=== PATIENT | female | born 1980 | race Caucasian/White ===

== ENCOUNTER 2022-12-14 09:31 | Outpatient (REF) | payer BC, SELFPAY ==
[2022-12-14 23:29] LABS: C Reactive Protein <0.2 mg/dL (<=1.0)
== END 2022-12-14 09:32 ==
LOC: LAB 09:31
PROVIDERS: PCP Nurse Practitioner Family; Visit Provider Internal Medicine Infectious Disease
DX: Z79.2 Long term (current) use of antibiotics (principal)
CPT/HCPCS: 36415; 86140

== ENCOUNTER 2022-12-21 09:45 | Outpatient (REF) | payer BC, SELFPAY ==
[2022-12-21 10:39] LABS: C Reactive Protein 0.5 mg/dL (<=1.0)
== END 2022-12-21 09:46 ==
LOC: LAB 09:45
PROVIDERS: PCP Nurse Practitioner Family; Visit Provider Internal Medicine Infectious Disease
DX: Z79.2 Long term (current) use of antibiotics (principal)
CPT/HCPCS: 36415; 86140

== ENCOUNTER 2022-12-28 09:06 | Outpatient (REF) | payer BC, SELFPAY ==
[2022-12-28 11:23] LABS: C Reactive Protein 0.5 mg/dL (<=1.0)
== END 2022-12-28 09:07 ==
LOC: LAB 09:06
PROVIDERS: PCP Nurse Practitioner Family; Visit Provider Internal Medicine Infectious Disease
DX: G06.1 Intraspinal abscess and granuloma (principal)
CPT/HCPCS: 36415; 86140

== ENCOUNTER 2023-02-03 12:44 | Outpatient (RCR) | payer BC, SELFPAY | END 2023-02-04 16:00 | disposition home or self-care (01) | LOC: PT 12:44 | PROVIDERS: PCP Nurse Practitioner Family; Visit Provider Neurological Surgery | DX: M46.46 Discitis, unspecified, lumbar region (principal); M51.26 Other intervertebral disc displacement, lumbar region; M46.1 Sacroiliitis, not elsewhere classified; G89.29 Other chronic pain | CPT/HCPCS: 97110; 97161 ==

== ENCOUNTER 2025-07-05 12:08 | Outpatient (OUT) | payer BC, SELFPAY ==
--- OUTSIDE RECORDS SUMMARY | 2025-07-05 12:13 | XMS_ITS | Patient Health Record ---
Author Organization [facility] in [place] Address [address] [place] [address] Care Team Providers Care All Source Intelligence Analyst Name Role Phone Rocío Augustine Primary Care Provider Allergies No Known Allergies Reason For Referral Reason snoring, wakes up ga sping Diagnosis 1 Snoring (R06.83) Referral Organization [facility] Referring Provider First Name Rocío Referring Provider Last Name Fawn Referring Provider Speciality Family Med icine Referred Provider Jade Tadeo Referred Provider Specialty Sleep Medici ne Referral Priority Routine Medications Medication SIG (Take, Route, Frequency, Duration) Notes Start Date End Date Status Loratadine 10 MG 1 tablet Orally Once a day ActiveMagnesium Oxide 400 MG1 tablet Orally Once a dayActiveMelatonin 10 MGas directed Orally one dailyActiveOmeprazole 40 MGTAKE 1 CAPSULE DAILY; Duration: 90ActiveOndansetron 4 MG1 tablet on the tongue and allow to dissolve Orally Once a day prn; Duration: 90 days4ActiveSenna 8.6 MG1 tablet Orally twice daily PRNActiveAcetaminophen 500 MG2 capsule Orally three times dailyActive dexAMETHasone 2 MG1 tablet Orally twice dailyUnknownPantoprazole Sodium 40 MG1 tablet Orally Once a dayUnknownCyclobenzaprine HCl 10 MG1 tablet as needed Orally BID; Duration: 90 daysActivehydrOXYzine HCl 25 MG1 tablet at bedtime Orally Once a dayUnknownDiclofenac Sodium 75 mgTAKE 1 TABLET TWICE A DAY; Duration: 90 daysActivebusPIRone HCl 7.5 MG1 tablet Orally Twice a day; Duration: 90 days5ActivehydrOXYzine HCl 25 MG1 tablet prn Orally twice a day; Duration: 30 days5ActiveDULoxetine HCl 60 MG2 capsules Orally Once a day; Duration: 90 daysActive Social History Tobacco Use: Social History Observation Description Date Details (start date - stop date) Current Smoker 07/10/2002 - NA Tobacco Use/Smoking Question Answer Notes Patient is a current smoker When did you start smoking?07/10/2002How often do you smoke cigarettes?every day How many cigarettes a day do you smoke?11-20Additional Findings: Tobacco User Moderate cigarette smoker (10-19 cigs/day)Alcohol Screen (Audit-C) Question Answer Notes Did you have a drink containing alcohol in the p ast year? Yes How often did you have 6 or more drinks on one occasion in the past year?Monthly or less (1 point)How many drinks did you have on a typical day when you were drinking in the past year?1 or 2 drinks (0 point)How often did you have a drink containing alcohol in the past year?Weekly (3 points)Pmqkfc1Mruznehdykdrly PositiveAUDIT-C (Standard) Question Answer Notes Did you have a drink containing alcohol in the p ast year? Yes How often did you have six or more drinks on one occasion in the past year?Never (0 point)How many drinks did you have on a typical day when you were drinking in the past year?1 or 2 drinks (0 point)How often did you have a drink containing alcohol in the past year?2 to 3 times a week (3 points)Lovors7Ksxvlozdhszvqq Positive Problems Problem Type SNOMED Code ICD Code Onset Dates Problem Status W/U Status Risk Notes Problem Lumbar discitis (800901382) Disc itis, unspecified, lumbar region (M46.46) ActiveconfirmedProblemGastroesophageal reflux disease (095472267)GERD (gastroesophageal reflux disease) (K21.9)ActiveconfirmedProblemMixed anxiety and depressive disorder (553215837)Anxiety and depression (F41.8)Activeconfirmed Vital Signs Blood pressure diastolic 78 mm Hg 06/19/2025 Tqsstt70 in06/19/2025lood pressure jquzksdw309 mm Hg06/19/20254895Skhdjx408 lbs 06/19/2025BMI31.77 kg/m206/19/2025 Encounters Encounter Location Date Provider Diagnosis [facility] [address] [place] [address] 06/19/2025 Rocío Augustine Anxiety and depression F41.8 ; Wellness examination Z00.00 ; Snoring R06.83 and Cervical cancer screening Z12.4 [facility] [address] [place] [address] 07/16/2024 Rocío Augustine [facility] [place] [address] [facility] [place] [address]/22/2025Rocío Augustine Assessments Encounter Date Diagnosis (ICD Code) Assessment Notes Treatment Notes Treatment Clinical Notes Section Notes 06/19/2025 Anxiety and depression (ICD-10 - F41.8) increase dose duloxetine add buspar, hydrox prn 06/19/2025Wellness examination (ICD-10 - Z00.00)ROS done exam done06/19/2025 Snoring (ICD-10 - R06.83)sleep study rrworawo33/11/2025ervical cancer screening (ICD-10 - Z12.4) referral to [facility]BGYN, [facility] or [facility] patient states will call to schedule needs pap, wants genetic testing and discuss menopause mother new dx of cervical CA Plan Of Treatment Pending Test Test Name Order Date CMP (COMPLETE METABOLIC PANEL) 4 HEMOGLOBIN A1C (GLYCO) 06/17/2024 HEMOGLOBIN A1C (GLYCO) 06/19/2025 INSULIN, TOTAL 06/17/2024 IRON, TOTAL 06/19/2025 LIPID PANEL (CHOL/TRIG/HDL/LDL) 06/17/20 24 LIPID PANEL (CHOL/TRIG/HDL/LDL) 06/19/20 25 CBC WITH DIFF (EXP 05/2025) 06/17/2024 VITAMIN D, 25 LEVEL (TOTAL) 06/19/2025 Insulin Level 06/19/2025 THYROID PANEL (T4/TSH/FREE T3) 4 THYROID PANEL (T4/TSH/FREE T3) 5 CMP (COMP MET JAUREGUI) w/eGFR CKD-EPI 2024 CBC WITH DIFF 06/19/2025 Insurance Providers Payer Name Payer Address Payer Phone Subscriber Number Group Number Insured Name Patient Relationship to Insured Coverage Start Date Coverage End Date [employer] PPO PLUS LOCAL PLAN [address] [place] [id number] Paras Hawthorne - patient is the [id number] 2022 Medical (General) History Medical History History ICD Code Cervical cancer screening Z12.4 Surgical History Surgery Date(Month/Year) Back surgery and revisionx3 Ganglion cyst removal wristWisdom Teeth removedCHOLECYSTECTOMYLugament surgery right ankleTONSILLECTOMY,UNDER 12YRSHospitalization History Reason Date(Month/Year) Back Surgery
--- OUTSIDE RECORDS SUMMARY | 2025-07-05 12:13 | XMS_ITS | Clinical Summary ---
Author Organization [facility] Address [address] [place] [address] Care Team Providers Care Sagger Preparer Name Role Phone Unavailable Primary Care Provider Unavailabl e Social History Tobacco UseTypesPacks/DayYears UsedDateSmoking Tobacco: Never Assessed CommentsUnknownSex and Gender InformationValueDate RecordedSex Assigned at Not on fileLegal EhwQqybfr76/15/2023 7:02 PM EDTGender IdentityNot on fileSexual OrientationNot on file Last Filed Vital Signs Vital SignReadingTime TakenCommentsBlood Tqoilarr333/9809 12:00 PM EDT Pulse--Temperature--Respiratory Rate--Oxygen Saturation--Inhaled Oxygen Concentration--Sxggsy81.6 kg (213 lb)03/13/2018 12:00 PM PPFBvqkls000.7 cm (5' 8 )03/13/2018 12:00 PM EDTBody Mass Index32.3909 12:00 PM EDT Plan of Treatment Not on file Insurance
[2025-07-05 12:57] LABS: Hematocrit 45.8 % (36.0-48.0); Hemoglobin 14.9 g/dL (12.0-16.0); Immature Granulocytes Abs Auto 0.00 10^3/uL (0.00-0.03); Immature Granulocytes Pct Auto 0.0 % (0.0-0.5); Lymphocytes Absolute Auto 1.8 10^3/uL (1.2-3.8); Mean Corpuscular HGB Conc 32.5 g/dL (29.9-35.2); Mean Corpuscular Hemoglobin 29.4 pg (26.7-34.0); Mean Corpuscular Volume 90.3 fL (81.0-99.0); Platelet Count 266 10^3/uL (150-450); Red Blood Count 5.07 10^6/uL (4.20-5.40); White Blood Count 5.7 10^3/uL (4.0-11.0)
[2025-07-05 13:06] LABS: Iron 156.0 ug/dL (50.0-170.0)
[2025-07-05 13:23] LABS: Alanine Aminotransferase 27 U/L (14-59); Albumin Globulin Ratio 1.2; Albumin Level 4.3 g/dL (3.4-5.0); Alkaline Phosphatase 69 U/L (46-116); Anion Gap 11.1; Aspartate Amino Transferase 35 U/L (15-37); Blood Urea Nitrogen 8.0 mg/dL (7.0-18.0); Calcium 9.3 mg/dL (8.5-10.1); Carbon Dioxide 30.0 mmol/L (21.0-32.0); Chloride 101 mmol/L (98-107); Cholesterol 310 mg/dL (<=200); Estimated GFR (African America >60 (>=60 mL/min/1.73m^2); Estimated GFR (Non-African Ame >60 (>=60 mL/min/1.73m^2); Free T3 2.54 pg/mL (2.18-3.98); Globulin 3.5 g/dL; Glucose 103 mg/dL (74-106); HDL Cholesterol 83 mg/dL (40-60); Potassium 4.1 mmol/L (3.5-5.1); Sodium 138 mmol/L (136-145); Thyroid Stimulating Hormone 2.057 uIU/mL (0.358-3.740); Total Protein 7.8 g/dL (6.4-8.2); Triglycerides 98 mg/dL (<=150); VLDL CHOLESTEROL 19.6 mg/dL
== END 2025-07-05 12:09 | disposition home or self-care (01) ==
LOC: LAB 12:10
PROVIDERS: PCP Nurse Practitioner Family; Visit Provider Nurse Practitioner Family
DX: Z00.00 Encounter for general adult medical examination without abnormal findings (principal)
CPT/HCPCS: 36415; 80053; 80061; 82306; 83036; 83525; 83540; 84436; 84443; 84481; 85025